=== PATIENT | female | born 1970 | race Two or more races ===

== ENCOUNTER 2018-04-21 17:26 | Inpatient (IN) | payer MEDICARE, OTHER ==
[~2018-04-21] VITALS: Ht 165.1 cm; Wt 109.4 kg
[~2018-04-21 17:26] MED LIST: AMLODIPINE BESYL5 MG ORAL; COREG3.125 MG ORAL
--- NOTE | 2018-04-21 17:28 | NUR ---
ED Nurse Note: PATIENT ALFREDA RA 59 FROM BUS STOP, SHE BECAME CONFUSED, SO PPL CALLED AMBULANCE. AT THE SCENE, BS WAS -30. PATIENT IS DROWSY, UNABLE TO FOLLOW MUCH COMMANDS AT THIS TIME.
--- NOTE | 2018-04-21 17:39 | Emergency Room Report ---
History of Present Illness General Chief Complaint: Abnormal Labs Source: Patient, EMS Present Illness HPI 47-year-old female presented for increased altered mental status. Patient a pressure history of diabetes. She is noted to be hypoglycemic in the field. Patient is normally undergoing peritoneal dialysis daily at home.History is markedly limited by patient being a poor historian. Allergies: Coded Allergies: No Known Allergies (Unverified , 04/21/18) Patient History Past Medical History: see triage record Last Menstrual Period: 03/2018 Now: No Reviewed Nursing Documentation: PMH: Agreed; PSxH: Agreed Nursing Documentation-PMH Hx Diabetes: Yes Hx Dialysis: Yes - PD Review of Systems All Other Systems: limited - by poor historian Physical Exam Vital Signs Date Time Temp Pulse Resp B/P (MAP) Pulse Ox O2 Delivery O2 Flow Rate FiO2 04/21/18 17:18 98.4 71 16 152/68 96 Room Air General Appearance: obese, Chronically Ill Head: normocephalic ENT: dry mucus membranes Respiratory: lungs clear, no rhonchi Gastrointestinal: non tender, soft Musculoskeletal: normal inspection Neurologic: normal inspection, alert, oriented x3, responsive Psychiatric: normal inspection Medical Decision Making Diagnostic Impression: Primary Impression: Hypoglycemia Additional Impression: ESRD (end stage renal disease) ER Course Present for hypoglycemia. Patient was noted to be diabetic. Differential diagnosis include was not limited to sepsis, medication noncompliance, insulin overdose among others. Because of complexity of patient's case laboratory testing and imaging studies were ordered. Laboratory testing was notable for elevated BUN/creatinine concern with patient's prior end-stage renal disease. Patient was noted to be mildly hyperkalemic. She was given IV fluids as well as IV dextrose. Patient was noted to have some improvement in her blood sugar mental status. Dr. Wilian Akbar I was contacted for inpatient management Labs Test 04/21/18 17:35 White Blood Count 9.7 K/UL (4.8-10.8) Red Blood Count 3.37 M/UL (4.20-5.40) Hemoglobin 11.1 G/DL (12.0-16.0) Hematocrit 33.4 % (37.0-47.0) Mean Corpuscular Volume 99 FL (80-99) Mean Corpuscular Hemoglobin 33.1 PG (27.0-31.0) Mean Corpuscular Hemoglobin Concent 33.4 G/DL (32.0-36.0) Red Cell Distribution Width 12.8 % (11.6-14.8) Platelet Count 256 K/UL (150-450) Mean Platelet Volume 7.3 FL (6.5-10.1) Neutrophils (%) (Auto) 74.3 % (45.0-75.0) Lymphocytes (%) (Auto) 16.1 % (20.0-45.0) Monocytes (%) (Auto) 7.3 % (1.0-10.0) Eosinophils (%) (Auto) 1.7 % (0.0-3.0) Basophils (%) (Auto) 0.7 % (0.0-2.0) Sodium Level 135 MMOL/L (136-145) Potassium Level 5.9 MMOL/L (3.5-5.1) Chloride Level 99 MMOL/L (98-107) Carbon Dioxide Level 22 MMOL/L (21-32) Anion Gap 14 mmol/L (5-15) Blood Urea Nitrogen 62 mg/dL (7-18) Creatinine 12.6 MG/DL (0.55-1.30) Estimat Glomerular Filtration Rate 3.2 mL/min (>60) Glucose Level 98 MG/DL (74-106) Lactic Acid Level 0.60 mmol/L (0.4-2.0) Calcium Level 7.0 MG/DL (8.5-10.1) Phosphorus Level 7.2 MG/DL (2.5-4.9) Magnesium Level 2.1 MG/DL (1.8-2.4) Total Bilirubin 0.3 MG/DL (0.2-1.0) Aspartate Amino Transf (AST/SGOT) 18 U/L (15-37) Alanine Aminotransferase (ALT/SGPT) 19 U/L (12-78) Alkaline Phosphatase 76 U/L (46-116) Total Creatine Kinase 315 U/L (26-308) Creatine Kinase MB 1.8 NG/ML (0.0-3.6) Creatine Kinase MB Relative Index 0.5 Troponin I 0.000 ng/mL (0.000-0.056) Total Protein 7.4 G/DL (6.4-8.2) Albumin 3.2 G/DL (3.4-5.0) Globulin 4.2 g/dL Albumin/Globulin Ratio 0.8 (1.0-2.7) Last Vital Signs Date Time Temp Pulse Resp B/P (MAP) Pulse Ox O2 Delivery O2 Flow Rate FiO2 04/21/18 17:18 98.4 71 16 152/68 96 Room Air Status: improved Disposition: ADMITTED INPATIENT Condition: Stable Rohit Hwang MD Apr 21, 2018 17:38
[2018-04-21] MEDS ORDERED: D5 1/2NS w/KCl 20mEq 1,000 ML IV SCH (17:45)
[2018-04-21 18:05] LABS: BASOPHILS % (AUTO) 0.7 % (0.0-2.0); EOSINOPHILS % (AUTO) 1.7 % (0.0-3.0); HEMATOCRIT 33.4 % (37.0-47.0); HEMOGLOBIN 11.1 G/DL (12.0-16.0); LYMPHOCYTES % (AUTO) 16.1 % (20.0-45.0); MEAN CORPUSCULAR VOLUME 99 FL (80-99); MONOCYTES % (AUTO) 7.3 % (1.0-10.0); NEUTROPHILS % (AUTO) 74.3 % (45.0-75.0); PLATELET COUNT 256 K/UL (150-450); RED BLOOD COUNT 3.37 M/UL (4.20-5.40); RED CELL DISTRIBUTION WIDTH 12.8 % (11.6-14.8); WHITE BLOOD COUNT 9.7 K/UL (4.8-10.8)
[2018-04-21 18:41] LABS: ALANINE AMINOTRANSFERASE 19 U/L (12-78); ALBUMIN 3.2 G/DL (3.4-5.0); ALBUMIN/GLOBULIN RATIO 0.8 (1.0-2.7); ALKALINE PHOSPHATASE 76 U/L (46-116); ANION GAP 14 mmol/L (5-15); ASPARTATE AMINO TRANSFERASE 18 U/L (15-37); BILIRUBIN,TOTAL 0.3 MG/DL (0.2-1.0); BLOOD UREA NITROGEN 62 mg/dL (7-18); CARBON DIOXIDE 22 MMOL/L (21-32); CHLORIDE 99 MMOL/L (98-107); CKMB 1.8 NG/ML (0.0-3.6); CREATINE KINASE 315 U/L (26-308); CREATININE 12.6 MG/DL (0.55-1.30); PHOSPHORUS 7.2 MG/DL (2.5-4.9); POTASSIUM 5.9 MMOL/L (3.5-5.1); SODIUM 135 MMOL/L (136-145)
[2018-04-21 18:58] VITALS: BP 152/68
--- NOTE | 2018-04-21 19:18 | NUR ---
ED Nurse Note: PER PATIENT, SHE MAKES VERY LITTLE URINE. PER DR. ROLLE, UA CANCELLED,
--- NOTE | 2018-04-21 19:22 | NUR ---
HAND-OFF: Report given to YOSEF MAE .
[2018-04-21] MEDS ORDERED: Sodium Polystyrene Sulfonate 15gm Powder ORAL ONE (20:15)
[2018-04-21] MEDS ORDERED: D5 1/2NS 1,000 ML IV SCH (20:15)
[2018-04-21 21:02] VITALS: BP 128/78
--- NOTE | 2018-04-21 21:02 | NUR ---
ER Nurse Note: Pt a&ox4, VSS, no signs of distress; afribrile. IV LT hand removed; site clean and bandaged. IV on right hand 22 inserted. BS 179. Pt has all belongings; will give report to oncoming nurse.
[2018-04-21 21:27] VITALS: BP 142/71
--- NOTE | 2018-04-21 21:27 | NUR ---
NURSE NOTES: Received pt. from ED via maritza. Pt. transferred to bed without any incident. [place] pt. to room, unit, and hospital policies. Received report from T[facility] Rdud. Belongings list check and accounted, consultative sales associate is in placed, IV site is intact, asymptomatic, patent and currently running D5 1/2 NS @ 100cc/hr. Bed is in the lowest position and locked, call light within reach. No hypoglycemic signs or symptoms noted. No acute distress noted at this time. Will contact Dr. Akbar for admission orders.
--- NOTE | 2018-04-21 21:35 | NUR ---
ER Nurse Note: Report given to TU Connelly in tele.
--- NOTE | 2018-04-21 22:01 | NUR ---
NURSE NOTES: Contacted Dr. Akbar for admission orders. Awaiting call back.
[2018-04-21] MEDS: D5 1/2NS 1,000 ML IV SCH (22:18)
--- NOTE | 2018-04-21 22:18 | NUR ---
NURSE NOTES: Received admission orders from Dr. Akbar. Will note and carry out orders.
[2018-04-22] VITALS: BP 130/67
--- NOTE | 2018-04-22 01:15 | History and Physical Report ---
DATE OF ADMISSION: 04/21/2018 HISTORY OF PRESENT ILLNESS: This is an elderly 47-year-old obese female came to the emergency room for recurrent hypoglycemia and altered mental status. The patient was talking to the patient. She does not remember how she came to the hospital. The patient claims she has been diabetic for last 10 years and has been taking insulin long-term as well as short insulins and took last night. She has no fever. No chills. Has been on hemodialysis for last 10 years. PAST MEDICAL HISTORY: Significant for diabetes, hypertension, and end-stage renal disease, on hemodialysis. MEDICATIONS: She is taking Norvasc, Coreg, and Nephro-Marleny. ALLERGIES: NKA. FAMILY HISTORY: Noncontributory. SOCIAL HISTORY: Lives at home with the sister. She denies any smoking and drinking. Denies any illegal drugs. REVIEW OF SYSTEMS: Generalized weakness, tired, fatigue, more awake now. PHYSICAL EXAMINATION: VITAL SIGNS: Blood pressure is 128/78, pulse 68, respirations 16, and temperature 98.2. SKIN: Good skin turgor. HEENT: NAD. CHEST: Bilaterally clear. CARDIOVASCULAR: Regular rhythm. No gallop. No murmur. ABDOMEN: Soft. Positive bowel sounds. EXTREMITIES: CCE. NEUROLOGICAL: Generalized weakness. LABORATORY DATA: White count is 9.7, hemoglobin 11, hematocrit 33, and platelets are 256. Chemistry panel - sodium 135, potassium 5.9, BUN 62, creatinine 13.6, and magnesium 2.1. CK 315 and troponin 0.00. ASSESSMENT: 1. Hypoglycemia. 2. Altered mental status. 3. End-stage renal disease. 4. Diabetes. 5. Hypertension. PLAN: We will admit on telemetry bed and continue the D5W 40 mL/hour. Accu-Chek daily before meals and at bedtime. Continue Norvasc. Continue carvedilol. Regular diet. Dietary consult. Order a sliding scale medium dose. César Akbar M.D. DR: AMBIKA JOB#: [id number] CC:
[2018-04-22] MEDS: D5 1/2NS 1,000 ML IV SCH (01:34)
[2018-04-22 04:00] VITALS: BP 146/75
[2018-04-22] MEDS: NovoLOG Insulin Flexpen SUBQ SCH ×4 (06:44→20:43)
--- NOTE | 2018-04-22 06:58 | General Progress Note ---
Assessment/Plan Problem List: (1) ESRD (end stage renal disease) ICD Codes: N18.6 - End stage renal disease SNOMED: 45372483 (2) Hypoglycemia ICD Codes: E16.2 - Hypoglycemia, unspecified SNOMED: 074139304 (3) Diabetes mellitus out of control ICD Codes: E11.65 - Type 2 diabetes mellitus with hyperglycemia SNOMED: 27641844, 629084301 Assessment/Plan continue low rate D5W continue to monitor glucose w/ low dose NISS renal diabetic diet Subjective Allergies: Coded Allergies: No Known Allergies (Unverified , 04/21/18) All Systems: reviewed and negative except above Subjective 47-year-old female presented for increased altered mental status. Patient a pressure history of diabetes. She is noted to be hypoglycemic in the field. Patient is normally undergoing peritoneal dialysis daily at home.History is markedly limited by patient being a poor historian. she is taking insulin at home she remembers taking 15 units daily but not sure what type of insulin? Objective Last 24 Hour Vital Signs Date Time Temp Pulse Resp B/P (MAP) Pulse Ox O2 Delivery O2 Flow Rate FiO2 04/22/18 04:00 70 04/22/18 04:00 97.3 70 18 146/75 (98) 99 04/22/18 00:00 97.1 65 18 130/67 (88) 97 04/22/18 00:00 65 04/21/18 21:45 Room Air 04/21/18 21:35 98.2 68 16 128/78 98 Room Air 04/21/18 21:27 62 04/21/18 21:27 97.0 62 18 142/71 (94) 04/21/18 21:02 98.2 68 16 128/78 98 Room Air 04/21/18 18:58 98.4 71 16 152/68 96 Room Air 04/21/18 17:18 98.4 71 16 152/68 96 Room Air Intake and Output 04/21/18 04/22/18 18:59 06:59 Intake Total 1480 ml Output Total 0 ml Balance 1480 ml Intake IV Total 1480 ml Output Urine Total 0 ml # Bowel Movements 1 Laboratory Tests 04/21/18 17:35: White Blood Count 9.7, Red Blood Count 3.37L, Hemoglobin 11.1L, Hematocrit 33.4L , Mean Corpuscular Volume 99, Mean Corpuscular Hemoglobin 33.1H, Mean Corpuscular Hemoglobin Concent 33.4, Red Cell Distribution Width 12.8, Platelet Count 256, Mean Platelet Volume 7.3, Neutrophils (%) (Auto) 74.3, Lymphocytes (% ) (Auto) 16.1L, Monocytes (%) (Auto) 7.3, Eosinophils (%) (Auto) 1.7, Basophils (%) (Auto) 0.7, Sodium Level 135L, Potassium Level 5.9H, Chloride Level 99, Carbon Dioxide Level 22, Anion Gap 14, Blood Urea Nitrogen 62H, Creatinine 12.6H , Estimat Glomerular Filtration Rate 3.2, Glucose Level 98, Lactic Acid Level 0.60, Calcium Level 7.0L, Phosphorus Level 7.2H, Magnesium Level 2.1, Total Bilirubin 0.3, Aspartate Amino Transf (AST/SGOT) 18, Alanine Aminotransferase ( ALT/SGPT) 19, Alkaline Phosphatase 76, Total Creatine Kinase 315H, Creatine Kinase MB 1.8, Creatine Kinase MB Relative Index 0.5, Troponin I 0.000, Total Protein 7.4, Albumin 3.2L, Globulin 4.2, Albumin/Globulin Ratio 0.8L Height (Feet): 5 Height (Inches): 5.00 Weight (Pounds): 230 General Appearance: no apparent distress EENT: pale conjunctivae Neck: normal alignment Cardiovascular: normal rate Respiratory/Chest: lungs clear Abdomen: normal bowel sounds Edema: 1+ Arm (L), 1+ Arm (R), 1+ Leg (L), 1+ Leg (R), 1+ Pedal (L), 1+ Pedal ( R), 1+ Generalized Objective Current Medications Medications (Trade) Dose Ordered Sig/Gini Route PRN Reason Start Time Stop Time Status Last Admin Dose Admin Amlodipine Besylate (Norvasc) 5 mg DAILY ORAL 04/22/18 09:00 05/22/18 08:59 Carvedilol (Coreg) 3.125 mg EVERY 12 HOURS ORAL 04/22/18 09:00 05/22/18 08:59 Dextrose 1,000 ml @ 40 mls/hr Q24H IV 04/22/18 02:45 04/22/18 14:45 04/22/18 03:18 Dextrose (Dextrose 50%) 25 ml Q30M PRN IV Hypoglycemia 04/21/18 23:45 05/21/18 23:44 Dextrose (Dextrose 50%) 50 ml Q30M PRN IV Hypoglycemia 04/21/18 23:45 05/21/18 23:44 Insulin Aspart (NovoLOG) BEFORE MEALS AND HS SUBQ 04/22/18 06:30 05/22/18 06:29 04/22/18 06:44 Item Value Date Time Bedside Blood Glucose 128 mg/dl H 04/22/18643 Bedside Blood Glucose 179 mg/dl H 04/21/18 [id number] Cosmo Puckett MD Apr 22, 2018 06:58
[2018-04-22 07:41] LABS: BASOPHILS % (AUTO) 0.5 % (0.0-2.0); EOSINOPHILS % (AUTO) 1.2 % (0.0-3.0); HEMATOCRIT 32.3 % (37.0-47.0); HEMOGLOBIN 10.9 G/DL (12.0-16.0); LYMPHOCYTES % (AUTO) 13.2 % (20.0-45.0); MEAN CORPUSCULAR VOLUME 97 FL (80-99); MONOCYTES % (AUTO) 8.2 % (1.0-10.0); NEUTROPHILS % (AUTO) 76.9 % (45.0-75.0); PLATELET COUNT 279 K/UL (150-450); RED BLOOD COUNT 3.32 M/UL (4.20-5.40); RED CELL DISTRIBUTION WIDTH 12.9 % (11.6-14.8); WHITE BLOOD COUNT 8.6 K/UL (4.8-10.8)
--- NOTE | 2018-04-22 07:45 | NUR ---
NURSE NOTES: received patient report from rickie rn. patient is on bed awake. no acute distress noted. bed is low and locked. will continue to monitor.
--- NOTE | 2018-04-22 07:45 | NUR ---
HAND-OFF: Report given to TU Hinds. Pt. is in stable condition. Plan of care endorsed.
[2018-04-22 08:00] VITALS: BP_SYST 124; BP_SYST 161; BP_DIAS 74; BP_DIAS 75
[2018-04-22 08:02] LABS: ALANINE AMINOTRANSFERASE 23 U/L (12-78); ALBUMIN 2.8 G/DL (3.4-5.0); ALBUMIN/GLOBULIN RATIO 0.7 (1.0-2.7); ALKALINE PHOSPHATASE 65 U/L (46-116); ANION GAP 15 mmol/L (5-15); ASPARTATE AMINO TRANSFERASE 13 U/L (15-37); BILIRUBIN,TOTAL 0.3 MG/DL (0.2-1.0); BLOOD UREA NITROGEN 64 mg/dL (7-18); CALCIUM 6.6 MG/DL (8.5-10.1); CARBON DIOXIDE 22 MMOL/L (21-32); CHLORIDE 99 MMOL/L (98-107); CREATININE 12.8 MG/DL (0.55-1.30); POTASSIUM 4.2 MMOL/L (3.5-5.1); SODIUM 136 MMOL/L (136-145)
[2018-04-22 12:00] VITALS: BP 131/68
--- NOTE | 2018-04-22 13:35 | Diagnostic Imaging Report ---
Indication: Dyspnea Comparison: None A single view chest radiograph was obtained. Findings: Pulmonary vascular congestion and interstitial edema suspected. Borderline cardiomegaly is present. The bones are unremarkable. IMPRESSION: CHF suspected
--- NOTE | 2018-04-22 14:38 | Cardiology Report ---
APPROVED REPORT EKG Measurement Heart [id number] Sinus bradycardia Otherwise normal ECG
--- NOTE | 2018-04-22 15:22 | NUR ---
CASE MANAGEMENT: REVIEW 47/F BIBA FROM THE BUN STOP CC: LOW BS / 30 SI: ESRD . HYPOGLYCEMIA T 97.0 HR 62 RR 18 BP 152/68 SAT 96% ROOM AIR GLUCOSE 62 NA 135 K 5.9 IS: D5 1/2 NS w/KCl 20mEq IVF @125ML/HR D5 1/2 NS IVF X1 KAYEXALATE PO X1 INTERQUAL CRITERIA MET: PATIENT ADMITTED TO TELEMETRY UNIT 04/21/2017 DCP: PATIENT IS FROM HOME
[2018-04-22 16:00] VITALS: BP 150/65
--- NOTE | 2018-04-22 18:36 | NUR ---
NURSE NOTES: per dr ambriz, decrease levemir dose to from 60 to 55 units. will update patient.
--- NOTE | 2018-04-22 19:45 | NUR ---
HAND-OFF: Report given to loc marion.
--- NOTE | 2018-04-22 19:57 | NUR ---
NURSE NOTES: RECEIVED PATIENT RESTING IN BED, NO COMPLAINTS OF PAIN AT THIS TIME. FALL PRECAUTIONS IN PLACE: CALL LIGHT AND BEDSIDE TABLE WITHIN REACH, BED IN LOW POSITION. PLAN OF CARE REVIEWED.
[2018-04-22 20:00] VITALS: BP 147/72
--- NOTE | 2018-04-22 21:15 | Progress Note ---
DATE: 04/22/2018 SUBJECTIVE: This is an elderly female. Currently, short of breath better. Hypoglycemia is improving. The patient is on c, we will discontinue. Monitor her Accu-Chek. OBJECTIVE: VITAL SIGNS: Blood pressure is 115/65, pulse 74, respirations 18, and temp is 98. HEENT: NAD. CHEST: Bilaterally few crackles. CARDIOVASCULAR: Regular rhythm. No gallop. No murmur. ABDOMEN: Soft. EXTREMITIES: CCE. NEUROLOGICAL: Generalized weakness. LABORATORY DATA: Her white counts are normal. Chemistry panel, BUN 64, creatinine 13, and glucose is 111. ASSESSMENT: 1. Syncope. 2. Hypoglycemia. 3. Diabetes. 4. End-stage renal disease, on PD. PLAN: We will currently continue amlodipine and Norvasc. We will cut back on Levemir. Continue sliding scale and Accu-Chek. DC plan. Dietary consult. Discussed with Dr. Kumar, Nephrology. César Akbar M.D. DR: HINA JOB#: [id number] CC:
[2018-04-23] VITALS: BP 140/58
[2018-04-23 04:00] VITALS: BP 128/63
[2018-04-23] MEDS: NovoLOG Insulin Flexpen SUBQ SCH ×2 (06:30→11:36)
--- NOTE | 2018-04-23 06:30 | Consultation ---
History of Present Illness General Date patient seen: Apr 23, 2018 Chief Complaint: Abnormal Labs Present Illness Allergies: Coded Allergies: No Known Allergies (Unverified , 04/21/18) Medication History Scheduled Amlodipine Besylate* (Amlodipine Besylate*), 5 MG ORAL DAILY, (Reported) Carvedilol (Coreg), 3.125 MG ORAL EVERY 12 HOURS, (Reported) Patient History Healthcare decision maker Resuscitation status Full Code Advanced Directive on File Physical Exam Last 24 Hour Vital Signs Date Time Temp Pulse Resp B/P (MAP) Pulse Ox O2 Delivery O2 Flow Rate FiO2 04/23/18 04:00 78 04/23/18 04:00 98.3 78 18 128/63 (84) 96 04/23/18 00:00 78 04/23/18 00:00 98.4 76 18 140/58 (85) 96 04/22/18 21:00 Room Air 04/22/18 20:41 79 147/72 04/22/18 20:00 77 04/22/18 20:00 98.5 79 18 147/72 (97) 98 04/22/18 16:00 79 04/22/18 16:00 98.2 74 18 150/65 (93) 97 04/22/18 12:00 98.2 70 18 131/68 (89) 97 04/22/18 11:34 75 04/22/18 09:31 69 161/75 04/22/18 09:31 69 161/75 04/22/18 09:00 Room Air 04/22/18 08:00 98.6 69 18 161/75 (103) 99 04/22/18 08:00 68 Intake and Output 04/22/18 04/23/18 19:00 07:00 Intake Total 840 ml Balance 840 ml Intake Oral 600 ml IV Total 240 ml # Voids 4 Laboratory Tests Test 04/22/18 06:55 White Blood Count 8.6 K/UL (4.8-10.8) Red Blood Count 3.32 M/UL (4.20-5.40) L Hemoglobin 10.9 G/DL (12.0-16.0) L Hematocrit 32.3 % (37.0-47.0) L Mean Corpuscular Volume 97 FL (80-99) Mean Corpuscular Hemoglobin 32.7 PG (27.0-31.0) H Mean Corpuscular Hemoglobin Concent 33.6 G/DL (32.0-36.0) Red Cell Distribution Width 12.9 % (11.6-14.8) Platelet Count 279 K/UL (150-450) Mean Platelet Volume 7.3 FL (6.5-10.1) Neutrophils (%) (Auto) 76.9 % (45.0-75.0) H Lymphocytes (%) (Auto) 13.2 % (20.0-45.0) L Monocytes (%) (Auto) 8.2 % (1.0-10.0) Eosinophils (%) (Auto) 1.2 % (0.0-3.0) Basophils (%) (Auto) 0.5 % (0.0-2.0) Sodium Level 136 MMOL/L (136-145) Potassium Level 4.2 MMOL/L (3.5-5.1) Chloride Level 99 MMOL/L (98-107) Carbon Dioxide Level 22 MMOL/L (21-32) Anion Gap 15 mmol/L (5-15) Blood Urea Nitrogen 64 mg/dL (7-18) H Creatinine 12.8 MG/DL (0.55-1.30) H Estimat Glomerular Filtration Rate 3.1 mL/min (>60) Glucose Level 111 MG/DL (74-106) H Hemoglobin A1c 7.0 % (4.3-6.0) H Calcium Level 6.6 MG/DL (8.5-10.1) L Total Bilirubin 0.3 MG/DL (0.2-1.0) Aspartate Amino Transf (AST/SGOT) 13 U/L (15-37) L Alanine Aminotransferase (ALT/SGPT) 23 U/L (12-78) Alkaline Phosphatase 65 U/L (46-116) Total Protein 6.6 G/DL (6.4-8.2) Albumin 2.8 G/DL (3.4-5.0) L Globulin 3.8 g/dL Albumin/Globulin Ratio 0.7 (1.0-2.7) L Height (Feet): 5 Height (Inches): 5.00 Weight (Pounds): 230 Medications Current Medications Medications (Trade) Dose Ordered Sig/Gini Route PRN Reason Start Time Stop Time Status Last Admin Dose Admin Amlodipine Besylate (Norvasc) 5 mg DAILY ORAL 04/22/18 09:00 05/22/18 08:59 04/22/18 09:31 Carvedilol (Coreg) 3.125 mg EVERY 12 HOURS ORAL 04/22/18 09:00 05/22/18 08:59 04/22/18 20:41 Dextrose (Dextrose 50%) 25 ml Q30M PRN IV Hypoglycemia 04/21/18 23:45 05/21/18 23:44 Dextrose (Dextrose 50%) 50 ml Q30M PRN IV Hypoglycemia 04/21/18 23:45 05/21/18 23:44 Insulin Aspart (NovoLOG) BEFORE MEALS AND HS SUBQ 04/22/18 06:30 05/22/18 06:29 04/22/18 20:43 Assessment/Plan Status Narrative Hematology Consult REQ MD: Kaleb Akbar DOS: 04/23/18 RFC: Anemia eval ID 47-year-old female presented for increased altered mental status. Patient a pressure history of diabetes. She is noted to be hypoglycemic in the field. Patient is normally undergoing peritoneal dialysis daily at home.History is markedly limited by patient being a poor historian. She does not remember how she came to the hospital. The patient claims she has been diabetic for last 10 years and has been taking insulin long-term as well as short insulins and took last night. She has no fever. No chills. Has been on hemodialysis for last 10 years. Seen by nephro here Allergies: No Known Allergies (Unverified , 04/21/18) PAST MEDICAL HISTORY: Significant for diabetes, hypertension, and end-stage renal disease, on hemodialysis. MEDICATIONS: She is taking Norvasc, Coreg, and Nephro-Marleny. ALLERGIES: NKA FAMILY HISTORY: Noncontributory. SOCIAL HISTORY: Lives at home with the sister. She denies any smoking and drinking. Denies any illegal drugs. REVIEW OF SYSTEMS: Generalized weakness, tired, fatigue, more awake now. Patient History Past Medical History: see triage record Last Menstrual Period: 03/2018 Now: No Reviewed Nursing Documentation: PMH: Agreed; PSxH: Agreed Hx Diabetes: Yes Hx Dialysis: Yes - PD All Other Systems: limited - by poor historian PE Vital Signs Last 24 Hour Vital Signs Date Time Temp Pulse Resp B/P (MAP) Pulse Ox O2 Delivery O2 Flow Rate FiO2 1/9/19 04:00 78 04/23/18 04:00 98.3 78 18 128/63 (84) 96 04/23/18 00:00 78 04/23/18 00:00 98.4 76 18 140/58 (85) 96 04/22/18 21:00 Room Air 04/22/18 20:41 79 147/72 04/22/18 20:00 77 04/22/18 20:00 98.5 79 18 147/72 (97) 98 04/22/18 16:00 79 04/22/18 16:00 98.2 74 18 150/65 (93) 97 04/22/18 12:00 98.2 70 18 131/68 (89) 97 04/22/18 11:34 75 04/22/18 09:31 69 161/75 04/22/18 09:31 69 161/75 04/22/18 09:00 Room Air 04/22/18 08:00 98.6 69 18 161/75 (103) 99 04/22/18 08:00 68 Head: normocephalic ENT: dry mucus membranes Respiratory: lungs clear Gastrointestinal: non tender, soft Musculoskeletal: normal inspection Neurologic: normal inspection, alert, oriented x3 Psychiatric: normal inspection Assessment and Recs: # Anemia of chronic disease/kidney disease --> obtain anemia panel --> also given fluids, can be component of fluid hemodilution --> transfuse as needed --> nephro following --> currently unless hgb drops, hold off on epo # Weakness/fatgiue due to esrd, hypoglycemia # Hypoglycemia --> given IV fluids as well as IV dextrose # ESRD (end stage renal disease) Time of note doesn't reflect time of encounter Greatly appreciate consultation! Anival Flores MD Apr 23, 2018 06:30
--- NOTE | 2018-04-23 07:25 | NUR ---
HAND-OFF: Report given to Avni WARREN RN. PATIENT RESTING IN BED, NO SIGNS OF DISTRESS NOTED.
--- NOTE | 2018-04-23 07:40 | NUR ---
NURSE NOTES: Received report from TU Zuluaga. Patient is in stable condition. No acute distress/SOB noted. Patient denies any pain discomfort at this time. Will continue plan of care.
[2018-04-23 08:00] VITALS: BP 144/65
[2018-04-23 09:03] LABS: FERRITIN 337 NG/ML (8-388); LACTATE DEHYDROGENASE 289 U/L (81-234)
[2018-04-23 09:25] LABS: % IRON SATURATION 59 % (15-50); IRON 117 ug/dL (50-175); TOTAL IRON BINDING CAPACITY 199 ug/dL (250-450)
--- NOTE | 2018-04-23 10:54 | NUR ---
NURSE NOTES: Discharge instruction given and patient verbalized understanding. No acute distress/SOB noted. Patient denies any pain/discomfort. Inventory check done. Removed bus driver/monitor and IV line. No bleeding noted on IV site. Awaiting for pick-up.
[2018-04-23 12:00] VITALS: BP 132/70
--- NOTE | 2018-04-23 13:22 | NUR ---
NURSE NOTES: Patient left with stable condition with 3 family members.
--- NOTE | 2018-04-24 02:15 | Discharge Summary ---
DATE OF ADMISSION: 04/21/2018 DATE OF DISCHARGE: 04/23/2018 DISCHARGE SUMMARY AND PROGRESS NOTE HISTORY/HOSPITAL COURSE: This is a young 47-year-old obese female who came to the emergency room for a recurrent chest pain, syncopal episode and hypoglycemia. The patient was admitted on the tele bed. She was monitored. She was discontinued Levemir at that time and was placed on NovoLog sliding scale. The patient is clinically doing better. Her current sugar is at 104 to 109. The patient is on sliding scale and the patient wants to go home and going to have PT as outpatient. DISCHARGE DIAGNOSES: 1. Hypoglycemia, resolved. 2. Syncope episode secondary to hypoglycemia. 3. Diabetes. 4. Hypertension. DIET: Two gram sodium, renal diet. ACTIVITIES: As tolerated. DISCHARGE INSTRUCTIONS: The patient was recommended to lose weight as well as cut down on Levemir from 60 units to 55 units subcutaneous every night, continue on NovoLog and follow up as outpatient. The patient was given my office number. César Akbar M.D. DR: ADIS JOB#: [id number] CC:
== END 2018-04-23 13:22 | disposition home or self-care (01) | DRG 638 ==
LOC: EDBD 17:26 → EMR 19:15 → 2E 19:27 → EDBEDREQ 20:20
DX: E11.649 Type 2 diabetes mellitus with hypoglycemia without coma (principal); I12.0 Hypertensive chronic kidney disease with stage 5 chronic kidney disease or end stage renal disease; R55 Syncope and collapse; I10 Essential (primary) hypertension; E66.9 Obesity, unspecified; E11.22 Type 2 diabetes mellitus with diabetic chronic kidney disease; N18.6 End stage renal disease; Z99.2 Dependence on renal dialysis; Z68.38 Body mass index [BMI] 38.0-38.9, adult
CPT/HCPCS: 36415; 71045; 80053; 82550; 82553; 82607; 82728; 82962; 83036; 83540; 83550; 83605; 83615; 83735; 84100; 84484; 85025; 85044; 85384; 87040; 93005; 96365; 96366; 96375; 99285; J1815